=== PATIENT | male | born 1950 | race Caucasian/White ===

== ENCOUNTER → 2018-06-10 | Outpatient (CLI) | payer OTHER, MEDICARE ==
[~2018-06-10] MED LIST: ADULT LOW DOSE81 MG OR; FENTANYL PA25 MCG/HR; FISHOIL; IBUPROFEN 200200 M1 OR; LOTENSIN40 MG OR; LUNESTA2 MG OR; LYRICA100 MG OR; METHOCARBAMOL750 MG PO; NORVASC10 MG OR; SYNTHROID150 MCG OR; VICODIN OR; VITAMIN D400 UNI1 OR; ZOCOR40 MG OR
== END ==
LOC: RAD 06-04 09:55 → SPEECH 13:24
DX: R13.13 Dysphagia, pharyngeal phase (principal)